=== PATIENT | female | born 1955 | race Caucasian/White ===

== ENCOUNTER 2016-11-30 22:01 | Emergency (ER) | payer OTHER ==
[~2016-11-30] VITALS: Ht 165.1 cm; Wt 77.7 kg
[2016-11-30 22:22] VITALS: BP 181/92; PULSE 78; RESP 14; O2SAT 97
[2016-11-30] MEDS ORDERED: LEVO100T45 PO (22:28)
[2016-11-30] MEDS ORDERED: RANI150T11 PO (22:28)
[2016-11-30] MEDS ORDERED: ESTR1TAB16 PO (22:28)
--- NOTE | 2016-11-30 23:15 | ED.REPORT ---
HPI-Extremity Problem Lower Date of Service Nov 30, 2016 ED Provider: Johann Bui DO Patient is a 61 year old female who presents to the ED after she noticed that her right leg was swollen this evening. Her swelling was so great that she was nearly unable to put her shoes on. The patient admits that she was standing on her leg all day today. The patient has previously injured this leg, mostly while skiing. She had surgery of her right foot this fall. Patient admits that she consumed plenty of salt in her food today. She states that the swelling has decreased since arriving to the ED, as she has been elevating her leg. Patient denies associated leg pain, chest pain, shortness of breath, or fever. The patient frequently takes Ibuprofen for various joint pains. Nursing Notes Stated Complaint: SWELLING RT LEG Chief Complaint: Extremity Trauma Nursing Notes Reviewed: Yes Allergies: Coded Allergies: No Known Allergies (Unverified , 11/30/16) Scheduled Estrogens Conj/Medroxyprog 0.45-1.5 mg (Prempro 0.45-1.5 mg) 1 Each Tablet 1 TABLET PO DAILY Levothyroxine (Levoxyl) 100 Mcg Tablet 100 MCG PO DAILY Ranitidine (Zantac) 150 Mg Tablet 150 MG PO BID General Time Seen by MD: 22:58 Chief Complaint Leg injury right Hx Obtained From: Patient Arrived By: Walk-in Onset Occurred: 1 - 4 hours ago Symptom Duration: Since onset Severity: Current: No pain currently Severity: Maximum: No pain Recent Healthcare: No recent doctor visit, No recent hospitalization Similar Sx Previous: No Past Medical History Past Medical History none reported Past Surgical History right foot surgery Smoking History Unknown if Ever Smoker Social History Other Social History: Good social support, Local resident Ambulatory Status Independent Review of Systems Constitutional: Denies: Chills, Fever Musculoskeletal: Reports: Extremity swelling, Denies: Extremity pain Complete sys rev & neg: except as marked. Respiratory: Reports: Shortness of breath Cardiovascular: Reports: Chest pain Physical Exam Initial Vital Signs Vital Signs (First) Date Time Temp Pulse Resp B/P Pulse Ox O2 Delivery O2 Flow Rate FiO2 11/30/16 22:22 36.7 78 14 181/92 97 Room Air Initial VS: Reviewed Head / Eyes: Atraumatic, Normocephalic, PERRL ENT: Conjunctiva normal, No scleral icterus Neck: Supple, Full range of motion Upper Extremities: Vascular intact, Neuro intact, No swelling Skin: Warm, Dry, No cyanosis Neurologic: Alert, Oriented, Nonfocal Psychiatric: Mood/affect normal, Behavior normal, Normal thought content Lower Extremity / Pelvis / MS: Neurologic intact, Vascular intact mild pitting edema right leg, bounding pulses Ankle / Foot: Neurologic intact, Vascular intact Respiratory / Chest: No respiratory distress, No stridor Cardiovascular: Heart rate NL, Cap refill not delayed, Peripheral circulation NL Interpretation & Diagnostics US DVT CONCLUSION: No evidence of right lower extremity deep venous thrombosis. Subcutaneous edema noted. Radiologist: Stephen Hernandez MD 11/30/2016 - 11:28:00 PM PDT Lab Results Interpretation Result Diagram: 12/01/16 0020 12/01/16 0020 Test 12/01/16 00:20 White Blood Count 8.3th/mm3 (3.8-10.1) Red Blood Count 4.71mil/mm3 (3.90-5.20) Hemoglobin 12.7g/dL (12.0-15.6) Hematocrit 36.7% (35.0-46.0) Mean Corpuscular Volume 77.9fL (81-100) Mean Corpuscular Hemoglobin 27.0pg (27.0-35.0) Mean Corpuscular Hemoglobin Concent 34.6% (32.0-37.0) Red Cell Distribution Width 12.7% (12.3-15.4) Platelet Count 268bil/L (150-400) Neutrophils (%) (Auto) 67.5% (40-74) Lymphocytes (%) (Auto) 24.3% (14-46) Monocytes (%) (Auto) 6.5% (4-12) Eosinophils (%) (Auto) 1.2% (0-5) Basophils (%) (Auto) 0.4% (0-3) D-Dimer < 0.5mg/L (<0.50) Sodium Level 140mEq/L (134-144) Potassium Level 4.0mEq/L (3.5-5.2) Chloride Level 102mEq/L (97-108) Carbon Dioxide Level 21mmol/L (18-29) Blood Urea Nitrogen 9mg/dL (6-24) Creatinine 0.73mg/dL (0.57-1.00) Estimat Glomerular Filtration Rate 117mL/min (>59) Glucose Level 118mg/dL (60-99) Calcium Level 9.4mg/dL (8.5-10.1) Total Bilirubin 0.3mg/dL (0.0-1.2) Aspartate Amino Transf (AST/SGOT) 18U/L (0-50) Alanine Aminotransferase (ALT/SGPT) 20U/L (0-32) Alkaline Phosphatase 75U/L (25-165) Pro-B-Type Natriuretic Peptide 76.76pg/mL (0-287) Total Protein 6.8g/dL (6.4-8.4) Albumin 4.4g/dL (3.4-5.0) Re-Eval/Medical Decision Source of Hx: Old records Re-Evaluation/Progress #1: Time of Eval: 23:39 Re-Evaluation/Progress Note: Patient was informed that her ultrasound was negative for DVT. Will draw labs prior to discharge. Re-Evaluation/Progress #2: Time of Eval: 01:47 Re-Evaluation/Progress Note: Informed the patient that her labs were normal. Patient understands and agrees with the plan to be discharged home. Discharge instructions and follow-up discussed. All questions were addressed. Return to the ED warnings given. Counseled Regarding: Diagnosis, Lab results, Need for follow-up, When/why to return to ED Discharge & Departure Impression: Primary Impression: Swelling of right lower extremity Disposition: Home Discharge Condition All VS Reviewed: Yes Condition: Stable Patient Instructions: Leg Edema (ED) Additional Instructions: Your labs and ultrasound tonight were reassuring. There were no signs of kidney disease or a blood clot. You should start wearing compression stockings daily. Follow-up with your doctor in the next 1-2 days. Return to the Emergency Department if you experience chest pain, shortness of breath, fever, or any other concerning symptoms. Referrals: Abena Castillo PA-C (PCP) Sharon Attestation Portions of this note were transcribed by Petty Cabezas. I, Dr. Bui personally performed the history, physical exam and medical decision-making; I reviewed and confirmed the accuracy of the information in the transcribed note. Signed by: Sharon Alvarez, 12/01/2016 0151 copies to: Abena Castillo PA-C, Todd P DO Nov 30, 2016 23:15 Petty Cabezas Nov 30, 2016 23:40
[2016-11-30 23:47] VITALS: BP_SYST 179; BP_SYST 192; BP_DIAS 74; BP_DIAS 90; PULSE 80; RESP 16; O2SAT 97
[2016-12-01 00:30] LABS: BASOPHILS % (AUTO) 0.4 % (0-3); EOSINOPHILS % (AUTO) 1.2 % (0-5); MONOCYTES % (AUTO) 6.5 % (4-12); Mean Corpuscular Volume 77.9 fL (81-100); NEUTROPHILS % (AUTO) 67.5 % (40-74); Platelet Count 268 bil/L (150-400)
[2016-12-01 01:02] VITALS: BP 141/53; PULSE 72; RESP 16; O2SAT 98
[2016-12-01 01:52] VITALS: BP 141/53; PULSE 72; RESP 16; O2SAT 98
--- NOTE | 2016-12-01 08:14 | DRSVH ---
PROCEDURE: US VEINOUS LEG DUPLEX UNILATERAL, RIGHT INDICATIONS: R leg swelling TECHNIQUE: Real-time imaging, as well as color and pulse Doppler interrogation, were performed of the lower extr emity deep veins from the inguinal ligament to the popliteal fossa. COMPARISON: None. FINDINGS: The deep veins are normally compressible, and free of intraluminal thrombus. Color and pu lse Doppler demonstrate normal phasic intraluminal flow. There is normal augmentation response to di stal compression maneuver. There is subcutaneous swelling. IMPRESSION: No DVT in the right lower extremity. Dictated by: Ross Nichols M.D. on 12/01/2016 at 8:13 Approved by: Ross Nichols M.D. on 12/01/2016 at 8:13
== END 2016-12-01 01:52 | disposition home or self-care (01) ==
LOC: SED 22:01
DX: R22.41 Localized swelling, mass and lump, right lower limb (principal)